=== PATIENT | female | born 1960 | race Caucasian/White ===

== ENCOUNTER 2017-05-21 16:16 | Emergency (ER) | payer SELFPAY ==
[2017-05-21] MEDS: NAPROXEN 500 MG TABLET PO (16:56)
[2017-05-21] MEDS: DIPHTH,PERTUSS(ACELL),TET TOX 0.5 ML DISP.SYRIN. VAX IM (16:57)
== END 2017-05-21 17:09 | disposition home or self-care (01) ==
LOC: ER 17:09
DX: S61.051A Open bite of right thumb without damage to nail, initial encounter (principal); F17.200 Nicotine dependence, unspecified, uncomplicated; W54.0XXA Bitten by dog, initial encounter; Y93.89 Activity, other specified; Y92.89 Other specified places as the place of occurrence of the external cause; Y99.8 Other external cause status
CPT/HCPCS: 90471; 90715; 99283-25